=== PATIENT | male | born 1960 | race Caucasian/White ===

== ENCOUNTER 2017-04-01 01:31 | Inpatient (IN) | payer OTHER ==
[2017-04-01] VITALS (7 sets, daily range): BP systolic 103–138; BP diastolic 54–89
[~2017-04-01] VITALS: Ht 160 cm; Wt 101.3 kg
--- NOTE | ~2017-04-01 | EKG ---
[place], [place] ELECTROCARDIOGRAM REPORT NAME: OANH PERSAUD UNIT #: [id number] ROOM: [facility] DOCTOR: IRMA MUNOZ MD BIRTHDATE: [birth year] DOS: 04/01/2017 TIME: 1:54 a.m. IMPRESSION: Normal sinus rhythm, normal ECG. No prior EKGs to compare. Irma Munoz MD CM:EKGRPT:ELECTROCARDIOGRAM REPORT 18 [id number] IRMA MUNOZ MD
--- NOTE | ~2017-04-01 | EKG ---
[place], [place] ELECTROCARDIOGRAM REPORT NAME: OANH PERSAUD UNIT #: [id number] ROOM: [facility] DOCTOR: IRMA MUNOZ MD BIRTHDATE: [birth year] DOS: 04/01/2017 TIME: 6:13 a.m. ASSESSMENT: Sinus rhythm; ST elevation, most likely early repolarization; borderline EKG. Compared to prior EKG done at 5:04, ST changes appear slightly more pronounced. Irma Munoz MD CM:EKGRPT:ELECTROCARDIOGRAM REPORT 17 IRMA MUNOZ MD
--- NOTE | ~2017-04-01 | EKG ---
[place], [place] ELECTROCARDIOGRAM REPORT NAME: OANH PERSAUD UNIT #: [id number] ROOM: [facility] DOCTOR: IRMA MUNOZ MD BIRTHDATE: [birth year] DOS: 04/01/2017 AGE: 56. TIME: 5:04 a.m. IMPRESSION: Sinus rhythm with early repolarization; compared to a prior EKG done at 1:00 a.m., the ST elevation is more pronounced, cannot rule out early myocardial infarction. Irma Munoz MD CM:EKGRPT:ELECTROCARDIOGRAM REPORT 20 30 IRMA MUNOZ MD
[2017-04-01 02:09] LABS: BASO # 0.1 10*3/uL (0.0-0.1); BASO % 0.9 % (0.0-1.0); EOS # 0.1 10*3/uL (0.0-0.4); EOS % 1.2 % (1.0-4.0); HEMATOCRIT 43.9 % (42.0-52.0); HEMOGLOBIN 14.8 g/dl (14.0-18.0); LYMPH % 25.1 % (27.0-41.0); MEAN CELL VOLUME 92.4 fl (80.0-94.0); MEAN CORPUSCULAR HGB 31.2 pg (27.0-31.0); MEAN CORPUSCULAR HGB CONC 33.7 g/dl (33.0-37.0); MEAN PLATELET VOLUME 9.6 fl (9.6-12.3); MONO # 0.9 10*3/uL (0.1-1.0); MONO % 7.4 % (3.0-9.0); NEUT # 7.8 10*3/uL (2.3-7.9); NEUT % 65.1 % (47.0-73.0); PLATELET COUNT AUTOMATED 264 10*3/uL (130-400); RED BLOOD COUNT 4.75 10*6/uL (4.50-5.90); RED CELL DISTRI WIDTH 12.8 % (0-14.5)
[2017-04-01 02:18] LABS: INTERNATIONAL NORM RATIO 0.9 (2.0-3.5)
[2017-04-01 02:27] LABS: ALBUMIN 3.9 gm/dl (3.1-4.5); ALKALINE PHOSPHATASE 92 U/L (45-117); BUN 11 mg/dl (7-24); CHLORIDE 105 mmol/L (98-107); CREATININE 0.99 mg/dL (0.70-1.30); POTASSIUM 3.9 mmol/L (3.5-5.1); SGOT/AST 19 IU/L (3-35); SGPT/ALT 34 U/L (12-78); SODIUM 142 mmol/L (136-145); TOTAL PROTEIN 7.2 gm/dL (6.4-8.2)
[2017-04-01 02:28] LABS: TROPONIN I < 0.015 ng/ml (<0.045)
[2017-04-01] MEDS ORDERED: LIPITOR40 MG PO (06:31)
[2017-04-01] MEDS ORDERED: NORVASC5 MG PO (06:32)
[2017-04-01] MEDS ORDERED: TRAZODONE50 MG PO (06:32)
[2017-04-01] MEDS ORDERED: GABAPENTIN600 MG PO (06:34)
== END 2017-04-01 08:05 | disposition short-term general hospital (02) | DRG 313 ==
LOC: ED 01:31 → EDHOLD 02:52 → 5E 03:01 → ICCU 06:53
PROVIDERS: Student in an Organized Health Care Education/Training Program
DX: R07.9 Chest pain, unspecified (principal); I25.10 Atherosclerotic heart disease of native coronary artery without angina pectoris; G35 Multiple sclerosis; F32.9 Major depressive disorder, single episode, unspecified; E78.2 Mixed hyperlipidemia; F41.9 Anxiety disorder, unspecified; G47.00 Insomnia, unspecified; M19.90 Unspecified osteoarthritis, unspecified site; I10 Essential (primary) hypertension; G62.9 Polyneuropathy, unspecified; Z87.891 Personal history of nicotine dependence; Z88.5 Allergy status to narcotic agent; Z88.8 Allergy status to other drugs, medicaments and biological substances; Z82.49 Family history of ischemic heart disease and other diseases of the circulatory system